=== PATIENT | female | born 1965 | race Caucasian/White ===

== ENCOUNTER → 2017-04-07 | Outpatient (CLI) | payer BC | LOC: RAD 10:08 | DX: M25.511 Pain in right shoulder (principal) ==

== ENCOUNTER → 2018-04-05 | Outpatient (CLI) | payer BC | LOC: RAD 06:59 | DX: M75.121 Complete rotator cuff tear or rupture of right shoulder, not specified as traumatic (principal); M75.21 Bicipital tendinitis, right shoulder; M19.011 Primary osteoarthritis, right shoulder ==

== ENCOUNTER → 2018-04-18 | Outpatient (CLI) | payer BC ==
[~2018-04-18] VITALS: Ht 167.6 cm; Wt 78.6 kg
[~2018-04-18] MED LIST: ASPIR LOW81 MG PO; CALCIUM 600MG+D1 TAB PO; CITALOPRAM40 MG PO; FISH OIL 1,2001 EACH PO; LOPRESSOR 225 MG/TAB PO; NEXIUM 40MG40 MG PO; PRAVASTATIN SOD80 MG PO; VESICARE5 MG PO; VOLTAREN-XR100 M1 PO; ZYRTEC10 M3 PO
[2018-04-18 11:00] VITALS: BP 135/72
== END ==
LOC: AMSURD 10:50
DX: Z01.818 Encounter for other preprocedural examination (principal); M25.511 Pain in right shoulder; Z98.890 Other specified postprocedural states; Z95.2 Presence of prosthetic heart valve

== ENCOUNTER → 2020-12-19 | Outpatient (REF) ==
[2018-04-18 11:00] VITALS: BP 135/72
== END ==
LOC: LAB 11:00
DX: R19.7 Diarrhea, unspecified (principal)

== ENCOUNTER → 2021-07-02 | Outpatient (REF) | LOC: LAB 08:22 | DX: K90.9 Intestinal malabsorption, unspecified (principal) ==

== ENCOUNTER → 2023-08-02 | Outpatient (CLI) | payer BC | LOC: RAD 16:11 | DX: J98.4 Other disorders of lung (principal); S29.9XXA Unspecified injury of thorax, initial encounter ==